=== PATIENT | female | born 1955 | race Caucasian/White ===

== ENCOUNTER 2017-09-27 13:01 | Emergency (ER) | payer OTHER ==
[~2017-09-27] VITALS: Ht 157.5 cm; Wt 62.6 kg
[~2017-09-27 13:01] MED LIST: DIAZEPAM5 M1 PO; FLEXERIL5 MG PO; IBU-6600 MG PO; ULTRAM50 MG PO
--- OUTSIDE RECORDS SUMMARY | 2017-09-27 13:05 | External Medical Summary Rpt | CCD ---
Demographics Preferred Language Tajik Marital Status Unknown Anabaptism Affiliation Unknown Race Unknown Ethnic Group Unknown Author Author , JANNA SALDIVAR Address Unknown Phone Immunization No patient found.
--- OUTSIDE RECORDS SUMMARY | 2017-09-27 13:05 | External Medical Summary Rpt | CCD ---
Author Author [employer] Organization [employer] Address Unknown Phone Unavailable Purpose Continuity of Care Document - through 2016
--- OUTSIDE RECORDS SUMMARY | 2017-09-27 13:05 | External Medical Summary Rpt | CCD ---
Author Author , JANNA Organization JANNA Address Unknown Phone [email or web address] Care [email or web address] [email or web address] Care Veneer Stacker Name Role Phone CHRISTIAN ROBISON MD, Unavailable Unavailable CHRISTIAN ROBISON MD Purpose Continuity of Care Document - 01-24-2013 through 2016 Problems Code Diagnosis DOS Provider Status 840.8 840.8 01-24-2013 [facility] M NEC Allergies, Adverse Reactions, Alerts Type Drug Allergy Adverse Reaction to Substance Substance Reaction Severity No Known Allergies - Unknown Unknown Nka Medications Na ND Rx Da Fi Fi Am Da Di Ph RX Ph St me C No te ll ll ou ys ag ar # ys at rm s nt no ma ic us Or Da si cy ia de te s n re d Tr 00 03 0 No am 90 -1 ad 45 0- Lo ol 55 20 ng 66 13 er 50 1 MG Ac ti Ta ve bl et Vital Signs 01-24-2013 15:59 Name Value Interpretat Reference Comment ion Range Body 98.2 [degF] Temperature BP 97 mm[Hg] Diastolic BP Systolic 174 mm[Hg] Heart 68 /min Rate/Pulse O2% 100 % Respiratory 17 /min Rate 01-24-2013 14:22 Name Value Interpretat Reference Comment ion Range BP 80 mm[Hg] Diastolic BP Systolic 133 mm[Hg] Heart 72 /min Rate/Pulse O2% 98 % Respiratory 18 /min Rate Encounters Encounter Start End Date Code Location Performer Type Date Emergency TAE ROBISON MD (ER) 3 14:18 3 16:00 [facility]
--- OUTSIDE RECORDS SUMMARY | 2017-09-27 13:05 | External Medical Summary Rpt | CCD ---
Demographics Preferred Language Persian Marital Status Unknown Synagogue Affiliation Unknown Race Unknown Ethnic Group Unknown Author Author , JANNA SALDIVAR Address Unknown Phone Immunization No patient found.
--- OUTSIDE RECORDS SUMMARY | 2017-09-27 13:05 | External Medical Summary Rpt | CCD ---
Author Author , JANNA Organization JANNA Address Unknown Phone [email or web address] [email or web address] Care Photographic Process Screen Maker Name Role Phone CHRISTIAN ROBISON MD, Unavailable Unavailable CHRISTIAN ROBISON MD Purpose Continuity of Care Document - 01-24-2013 through 2016 Problems Code Diagnosis DOS Provider Status 840.8 840.8 01-24-2013 [facility] M NEC Allergies, Adverse Reactions, Alerts Type [...] ROBISON MD (ER) 3 14:18 3 16:00 [facility]
--- NOTE | 2017-09-27 13:22 | Urgent Treatment Center Report ---
History of Present Issue Date/Time Seen by Provider 09/27/17 1319 Visit Reason Pt arrived:Walked Presenting Problem:PT C/O RAW THROAT AND ACHES AND CHILLS Location if Accident: Onset of symptoms date/time:09/26/1709/02/2000 or onset unknown for: Have you (or family members/close friends) recently traveled outside the [place]? N If Yes, where/when: Have you had exposure to infectious disease within the past month? TB? Other? Specify: Source patient, RN notes reviewed Exam Limitations no limitations Comment Patient states that she has not been feeling well since last night. Worried that she is getting the flu. Has had fever, chills, body aches as well as sore throat. Went to bed early last night and feeling worse as the day goes on today. Grandkids have had strep. Denies ear pain. Denies cough. Denies dysuria. ALLERGIES Coded Allergies: No Known Allergies (12/26/16) Home Medications Active Scripts Tramadol Hcl (Ultram 50MG) 50 MG PO Q6HP #10 TAB Prov: 01/24/13 Cyclobenzaprine Hcl (Flexeril) 5 MG PO BID #14 TAB Prov: 01/24/13 Reported Medications Diazepam 5 MG PO PRN #60 20 Days History Medical History General CAD? No Angina: No AK: No Hypertension? No Hyperlipidemia? Yes CHF? No DVT? No PE? No COPD? No Asthma? No Anemia? No GERD? No Gastric ulcers? No GI Bleed? No Hernia? No Thyroid Problems? No Hypothyroidism? No CVA? No Seizures? No Diabetes? No Renal Insuffiency? No UTI? No Stones? No BPH? No GB Disease: No Nephritic Syndrome? No Asplenia? No Hepatitis? No Sickle Cell Disease? No Arthritis? No Migraines? No Cataracts? No Glaucoma? No MRSA? No HIV? No TB? No Anxiety? No Depression? No Cancer? No More? No Immunization HX DT/Tetanus UNKNOWN Surgical Hx Previous Surgery?Y TUBAL LIGATION APPENDECTOMY Social History Smoking Hx Smoker: Never Smoker Tobacco: No Alcohol Alcohol: No Review of Systems All Other Systems Reviewed and Negative ENT throat pain. Musculoskeletal see HPI Physical Exam Vital Signs Vital Signs Date Time Temp Pulse Resp B/P Pulse O2 O2 Flow FiO2 Ox Delivery Rate 09/27 1311 98.7 74 20 136/84 99 General Appearance normal appearance, no apparent distress Eye Exam - bilateral eye normal exam, bilateral eye PERRL, bilateral eye EOMI Ear, Nose, Throat hearing grossly normal, pharyngeal erythema Neck normal inspection, non-tender, supple, full range of motion Respiratory Status No: respiratory distress, trachea midline, chest symmetrical. Lung Sounds bilateral: normal breath sounds, lungs clear. Cardiovascular normal exam, regular rate/rhythm, no peripheral edema, no gallop, no JVD, no murmur, no rub Gastrointestinal normal bowel sounds, normal exam, non tender Extremities non-tender, normal range of motion, normal inspection, normal capillary refill Neurologic alert, normal exam, oriented x 3 Mental status normal mood/affect Medical Decision Making LABS/Meds/Orders Pt receiving controlled substance in ED? No Results/Orders Laboratory Tests 09/27/17 1323: Influenza Type A Ag NOT DETECTED, Influenza Type B Ag NOT DETECTED, Group A Strep Screen NOT DETECTED Orders Procedure Date/time Status UTC STREP SCREEN 09/27 1323 Complete UTC FLU A,B 09/27 1323 Complete Departure Departure Time of Disposition 1344 Disposition DC Home or Self Care(routine) Clinical Impression Primary Impression: URI (upper respiratory infection) Qualifiers: URI type: unspecified viral URI Qualified Code: J06.9 - Acute upper respiratory infection, unspecified Condition STABLE Referrals César VELAZQUEZ,A.C. (Family) Patient Instructions DI for Viral Upper Respiratory Infection -- Adult Discharge Counseling Counseled pt/family regarding diagnosis, test results, medications/RX, home care, follow up needs Comment Rest, fluids. Prescriptions Current Visit Scripts Prednisone (Prednisone 20MG) 20 MG PO BID #10 TAB at 1344
[2017-09-27 13:34] LABS: UTC STREP SCREEN NOT DETECTED (NOTDETECTED)
[2017-09-27] MEDS ORDERED: PREDNISONE 20MG20 MG PO (13:45)
[2017-09-27 13:46] VITALS: BP 136/84
== END 2017-09-27 13:47 | disposition home or self-care (01) ==
LOC: UTC 13:01
PROVIDERS: Emergency Medicine
DX: J06.9 Acute upper respiratory infection, unspecified (principal)

== ENCOUNTER → 2017-10-10 | Outpatient (CLI) | payer OTHER ==
[~2017-10-10] MED LIST changes: +PREDNISONE 20MG20 MG PO
--- NOTE | 2017-10-16 16:39 | RADIOLOGY REPORT PS360 ---
DIG MAMM-SCREEN JESSICA W/CAD CAD Screening COMPARISON: Digital mammograms 02/03/2015 and 08/13/2016 INDICATION: There is a history of breast cancer in patient's maternal grandmother and mother TECHNIQUE: Standard CC and MLO images were obtained. R2 CAD reviewed. FINDINGS: Diffuse heterogenic fiber glandular densities are seen in both breast and the findings are bilateral and symmetrical. Again is a stable asymmetric density likely asymmetric glandular tissue upper central portion of the right breast. There are few benign-appearing calcifications in the left breast and there is faint arterial calcination in each breast. There is a mole marker left breast. There are stable small nodes both axilla. IMPRESSION: Stable exam with no suspicious lesion seen recommend yearly follow-up BI-RADS CATEGORY: 2_Benign RECOMMENDED FOLLOWUP: 12M 12 MONTH FOLLOW-UP (A letter has been sent to the patient regarding results of the study.)
== END ==
LOC: RAD 16:58
DX: Z12.31 Encounter for screening mammogram for malignant neoplasm of breast (principal)
CPT/HCPCS: G0202